=== PATIENT | male | born 1925 | race Caucasian/White ===

== ENCOUNTER 2017-01-20 21:42 | Observation (INO) | payer MEDICARE ==
[~2017-01-20] VITALS: Ht 177.8 cm; Wt 59.1 kg
[~2017-01-20 21:42] MED LIST: BAYER CHEWABLE81 MG PO; CLOBETASOL PROP15 GM TP; FISH OIL 1,0001 CA1 PO; LISINOPRIL2.5 MG PO; LOPRESSOR25 MG PO; PLAVIX75 MG PO; PRILOSEC20 MG PO; PROSCAR5 MG PO; ULTRAM50 MG PO; XALATAN 0.0052.5 ML EACH EYE; ZOCOR10 MG PO; ZYRTEC-D T1 TAB.SR . PO; ZYRTEC10 MG PO
[2017-01-20 22:32] LABS: BASOPHILS 0.6 % (0-2); EOSINOPHILS 1.8 % (0-7); HEMATOCRIT 43.4 % (42.0-54.0); IMMATURE GRANULOCYTES 2.6 % (0-5); LYMPHOCYTES 20.9 % (15-50); MCH 31.6 pg (26.0-34.0); MCHC 32.3 g/dL (31.0-37.0); MEAN PLATELET VOLUME 10.2 fL (7.4-10.4); MONOCYTES 11.5 % (2-11); NEUTROPHILS 62.6 % (40-80); PLATELET COUNT 213 10x3/uL (130-400); RBC 4.43 10x6/uL (4.20-6.10); RDW 15.1 % (11.5-14.5); WBC 10.3 10x3/uL (4.8-10.8)
[2017-01-20 22:45] LABS: APTT 27.8 SECONDS (22.8-39.4); INR 1.07 (0.85-1.17); PROTIME 13.8 SECONDS (11.6-15.0)
[2017-01-20 22:52] LABS: ALBUMIN 3.6 g/dL (3.4-5.0); ANION GAP 12.4 mmol/L (8-16); BILIRUBIN - TOTAL 0.78 mg/dL (0.2-1.3); CALCIUM 9.1 mg/dL (8.5-10.1); CARBON DIOXIDE 27.9 mmol/L (21.0-32.0); CREATININE - SERUM 1.3 mg/dL (0.6-1.3); POTASSIUM - SERUM 4.3 mmol/L (3.5-5.1); PROTEIN - SERUM 7.3 g/dL (6.4-8.2)
[2017-01-21 01:15] LABS: APPEARANCE CLEAR (CLEAR); BILIRUBIN NEGATIVE (NEGATIVE); COLOR YELLOW (YELLOW); GLUCOSE NEGATIVE (NEGATIVE); KETONE NEGATIVE (NEGATIVE); LEUKOCYTE ESTERASE NEGATIVE (NEGATIVE); NITRITE NEGATIVE (NEGATIVE); PROTEIN NEGATIVE (NEGATIVE)
[2017-01-21 01:16] LABS: BACTERIA NONE SEEN /hpf (NONE SEEN); EPITHELIAL CELLS RARE /hpf (0-5); WHITE CELLS - URINE RARE /hpf (0-5)
[2017-01-21 03:08] VITALS: BP 164/71; Ht 177.8 cm; Wt 59.1 kg
[2017-01-21 04:00] VITALS: BP 164/71
--- NOTE | 2017-01-21 08:25 | NUR ---
PATIENT IS SITTING UP ON THE SIDE OF THE BED. PATIENT IS MOVING ALL EXTREMETIES. CAT TENDER STRENGTHS ARE EQUAL. PATIENT STATED "MY LEFT ARM FEELS BETTER BUT STILL A LITTLE WEIRD." PATIENT DENIES NEEDS. BED IN LOWEST POITION, CALL LIGHT IN REACH. BED RAILS UP X'S 2.
[2017-01-21 09:45] VITALS: BP 151/58
[2017-01-21 11:03] LABS: BASOPHILS 0.9 % (0-2); EOSINOPHILS 1.8 % (0-7); HEMATOCRIT 44.8 % (42.0-54.0); HEMOGLOBIN 14.3 g/dL (13.5-17.5); IMMATURE GRANULOCYTES 1.8 % (0-5); MCH 31.2 pg (26.0-34.0); MCHC 31.9 g/dL (31.0-37.0); MCV 97.8 fL (80.0-100.0); MEAN PLATELET VOLUME 10.1 fL (7.4-10.4); MONOCYTES 12.4 % (2-11); NEUTROPHILS 63.1 % (40-80); PLATELET COUNT 193 10x3/uL (130-400); RBC 4.58 10x6/uL (4.20-6.10); WBC 9.8 10x3/uL (4.8-10.8)
[2017-01-21 12:45] VITALS: BP 125/50
--- NOTE | 2017-01-21 13:51 | NUR ---
[facility] PRESCREENING Rehab appreciates this referral. We will continue to follow for PT and OT evaluations. Jesi Medeiros, FORECLOSURE FIELD INSPECTOR International Trade Analyst Acute Inpatient Rehab
[2017-01-21 16:55] VITALS: BP 137/65
[2017-01-21 20:00] VITALS: BP 146/74
[2017-01-22] VITALS: BP 100/53
[2017-01-22 04:00] VITALS: BP 98/48
[2017-01-22 06:13] LABS: BASOPHILS 0.4 % (0-2); EOSINOPHILS 0.8 % (0-7); HEMATOCRIT 44.1 % (42.0-54.0); HEMOGLOBIN 13.9 g/dL (13.5-17.5); IMMATURE GRANULOCYTES 1.3 % (0-5); LYMPHOCYTES 17.5 % (15-50); MCH 30.8 pg (26.0-34.0); MCHC 31.5 g/dL (31.0-37.0); MCV 97.8 fL (80.0-100.0); MEAN PLATELET VOLUME 10.8 fL (7.4-10.4); MONOCYTES 11.4 % (2-11); NEUTROPHILS 68.6 % (40-80); PLATELET COUNT 210 10x3/uL (130-400); RBC 4.51 10x6/uL (4.20-6.10); RDW 15.2 % (11.5-14.5); WBC 11.9 10x3/uL (4.8-10.8)
[2017-01-22 06:38] LABS: ALBUMIN 3.5 g/dL (3.4-5.0); ANION GAP 14.2 mmol/L (8-16); BILIRUBIN - TOTAL 0.57 mg/dL (0.2-1.3); CALCIUM 8.8 mg/dL (8.5-10.1); CARBON DIOXIDE 27.7 mmol/L (21.0-32.0); CREATININE - SERUM 1.4 mg/dL (0.6-1.3); POTASSIUM - SERUM 3.9 mmol/L (3.5-5.1); PROTEIN - SERUM 6.7 g/dL (6.4-8.2); THYROID STIMULATING HORMONE 2.98 uIU/mL (0.36-3.74)
[2017-01-22 08:31] VITALS: BP 135/65
--- NOTE | 2017-01-22 08:54 | NUR ---
PT ASSESSMENT COMPLETE AWAKE AND ALERT ORIENTED X 3 HARD OF HEARING HEARING AID NOTED TO BILAT EARS. BSA X 4 QUADS ABD SOFT AND NON TENDER.
--- NOTE | 2017-01-22 11:25 | NUR ---
Patient Name: SEGUN RAGSDALE Admission Status: ER Accout number: [id number] Admission Date: 01-21-2017 : 1925 Admission Diagnosis: Attending: ELIZABETH Current LOS: 1 Anticipated DC Date: 01-23-2017 Planned Disposition: Home Primary Insurance: MEDICARE A & B Discharge Planning Comments: CM MET WITH PATIENT AND (TITO) REGARDING D/C NEEDS AND PLANS. FAMILY WILL DRIVE PATIENT HOME WHEN DISCHARGED. PATIENT STATED THERE ARE NO STEPS OR STAIRS AT HIS HOME. PATIENT IS INDEPENDENT WITH HIS CARE AND HAS A WALKER, WHEELCHAIR, CANE, AND GLUCOMETER (CKS. 3X DAILY) AT HOME. PATIENTS PCP IS DR. MIRELES AND PHARMACY IS [facility] [address]. PATIENT SIGNED THE DONITA FORM FOR [facility] IF NEEDED. CM WILL CONTINUE TO FOLLOW PATIENT WITH D/C NEEDS AND PLANS. PCP DR. MIRELES (BROOKS SEEING HERE) [facility] [address]- [phone] TITO RAGSDALE () [phone] Security Attendant: Sonal Pool Is the patient Alert and Oriented? Yes 0 * How many steps to enter\exit or inside your home? 0 0 * PCP DR. MIRELES 0 * [facility] [address] [facility] * Preadmission Environment Home with Family 0 * ADLs Independent 0 * Equipment Cane Glucometer Walker Wheelchair 0 * List name and contact numbers for known caregivers / representatives who currently or will assist patient after discharge: TITO RAGSDALE () [phone] 0 * Community resources currently utilized None 0 * Additional services required to return to the preadmission environment? Yes 0 * Can the patient safely return to the preadmission environment? Yes 0 * Has this patient been hospitalized within the prior 30 days at any hospital? No 0 Grand Total: 0
[2017-01-22 11:39] VITALS: BP 128/68
--- NOTE | 2017-01-22 13:03 | NUR ---
01/22/2017 13:03 DCP: Discharge Planning HH order faxed and called to Aziza with [facility].
--- NOTE | 2017-01-22 14:19 | NUR ---
PT GIVEN DISCHARGE INSTRUCTIONS PER ORDERS PT AND SPOUSE STATE UNDERSTANDING. PIV DISCONTINUED. PT DISCHARGED VIA WHEELCHAIR TO PRIVATE VEHICLE WITH FAMILY.
--- NOTE | 2017-01-24 08:06 | EC ---
PATIENT:SEGUN RAGSDALE DATE OF SERVICE: 01/21/17 SEX: M MEDICAL RECORD: [id number] DATE OF : [birth year] LOCATION:[facility] AGE OF PATIENT: 89 ADMISSION DATE: 01/21/17 REFERRING PHYSICIAN: INTERPRETING PHYSICIAN: BULMARO MEJIA MD ECHOCARDIOGRAM REPORT ECHO CHARGES 4 ECHO COMPLETE CLINICAL DIAGNOSIS: TIA ECHOCARDIOGRAPHIC MEASUREMENTS (adult normal given) AC root (d.<3.7cm) 3.8 LV Septum d (<1.2 cm> 1.2 Valve Excursion 1.2 LV Septum (systole) 1.6 Left Atria (s.<4.0cm> 3.3 LVPW d(<1.2cm) 1.2 RV (d.<2.3cm) 2.9 LVPW (sytole) 1.6 LV diastole(<5.6CM) 5.0 MV E-F(>70mm/sec) LV systole 2.7 LVOT Diameter 1.9 MV exc.(>10mm) Est.ejection fraction (50-75%) Pericardial Effusion N DOPPLER: LVIT A 91.0 E 80.0 LA RVSP 50.0 LVOT 92.0 AOP1/2T 488.0 Asc. Ao 145 RVOT 41.0 RA PA 78.0 AV Gradient Peak 8.4 AV Mean 4.0 AV Area 1.7 MV Gradient Peak 5.4 MV Mean 1.6 MV Area COMMENTS: Water Softener Installer: Loretta BOLAÑOSOE Electronics Assembler:1 Dr. Mejia TAPE# PACS DATE OF SERVICE: 01/22/2017 Echocardiogram FINDINGS: 1. Left ventricular chamber size is within normal limits. Left ventricular systolic function is normal. Overall ejection fraction estimated at 60%. 2. Left atrium is within normal limits at 3.3 cm. Right atrium and right ventricular chamber sizes are moderately dilated. 3. Valvular structures have normal structure and motion. ECHOCARDIOGRAM REPORT [id number] SEGUN RAGSDALE 4. Doppler interrogation reveals mild aortic insufficiency, mild mitral regurgitation, moderate tricuspid regurgitation, no other valvular insufficiency or stenosis. Pulmonary systolic pressure is elevated estimated at 50 mmHg. 5. No evidence of pericardial effusion or left ventricular thrombus. TRANSINT:[id number] Voice Confirmation ID: [id number] DOCUMENT ID: [id number] BULMARO MEJIA MD at 0806 CC: [id number] DICTATION DATE: 01/23/17 1129 LENS EXAMINER: 01/24/17 0428 DIS IN 01/22/17 [place] [id number] [facility]
== END 2017-01-22 14:20 | disposition home or self-care (01) ==
LOC: D.ER 21:42 → D.MS 01-21 02:00 → OBSVTIME 01-21 02:00 → D.MS 01-22 14:20
PROVIDERS: Family Medicine; ADMIT Family Medicine
DX: R41.0 Disorientation, unspecified (principal); E11.65 Type 2 diabetes mellitus with hyperglycemia; Z79.84 Long term (current) use of oral hypoglycemic drugs; I10 Essential (primary) hypertension; I25.10 Atherosclerotic heart disease of native coronary artery without angina pectoris; H91.90 Unspecified hearing loss, unspecified ear; Z95.1 Presence of aortocoronary bypass graft; Z87.891 Personal history of nicotine dependence